=== PATIENT | female | born 1990 | race Two or more races ===

== ENCOUNTER 2019-06-05 08:31 | Observation (INO) | payer OTHER ==
[~2019-06-05] VITALS: Ht 162.6 cm; Wt 91.2 kg
[2019-06-05] MEDS ORDERED: FAMOTIDINE 20 MG/2 ML IV ONE (09:00)
[2019-06-05] MEDS ORDERED: ONDANSETRON 2MG/ML, 2ML IVPush ONE (09:00)
[2019-06-05] MEDS ORDERED: MAALOX/HYOSCYAMINE/LIDOCAINE 45 ML BTL PO ONE (09:00)
[2019-06-05] MEDS ORDERED: SODIUM CHLORIDE FLUSH 10ML SYR IVF ONE (09:00)
[2019-06-05 09:14] LABS: MEAN CORPUSCULAR HEMOGLOBIN 29.5 pg (27.0-34.8); MEAN CORPUSCULAR HGB CONC 33.4 g/dL (32.4-35.8); MEAN CORPUSCULAR VOLUME 88.4 fL (80-100); MEAN PLATELET VOLUME 7.8 fL (7.4-10.4); PLATELET COUNT 237 x10^3/uL (130-400); RED CELL DISTRIBUTION WIDTH 12.9 % (9.6-15.2)
[2019-06-05 09:22] LABS: ALANINE AMINOTRANSFERASE 39 U/L (12-78); ALBUMIN 3.7 g/dL (3.4-5.0); ANION GAP 7 mmol/L (5-15); CALCIUM 8.5 mg/dL (8.5-10.1); CHLORIDE 105 mmol/L (98-107)
[2019-06-05] MEDS ORDERED: FAMOTIDINE 20 MG TABLET ONE (09:22)
[2019-06-05] MEDS ORDERED: ONDANSETRON ODT 4 MG ONE (09:23)
[2019-06-05] MEDS ORDERED: MAALOX/HYOSCYAMINE/LIDOCAINE 45 ML BTL ONE (09:23)
[2019-06-05 09:27] LABS: ALKALINE PHOSPHATASE 61 U/L (45-117); BASOPHILS # (AUTO) 0.01 x10^3/uL (0-0.1); BASOPHILS % (AUTO) 0 % (0-1); BILIRUBIN,TOTAL 1.1 mg/dL (0.2-1.0); EOSINOPHILS # (AUTO) 0.05 x10^3/uL (0-0.4); EOSINOPHILS % (AUTO) 0 % (1-7); LYMPHOCYTES # (AUTO) 1.17 x10^3/uL (1-3.4); LYMPHOCYTES % (AUTO) 5 % (22-44); MD SCAN; MONOCYTES % (AUTO) 1 % (2-9); NEUTROPHILS # (AUTO) 20.33 x10^3/uL (1.8-6.8); NEUTROPHILS % (AUTO) 93 % (42-75); TOTAL PROTEIN 7.5 g/dL (6.4-8.2)
--- NOTE | 2019-06-05 09:27 | NUR ---
PATIENT IN BED. FRIEND BEDSIDE. MEDICATION GIVEN.
[2019-06-05] MEDS ORDERED: ONDANSETRON ODT 4 MG PO ONE (09:30)
[2019-06-05] MEDS ORDERED: FAMOTIDINE 20 MG TABLET PO ONE (09:30)
[2019-06-05 09:31] LABS: MICROSCOPIC AUTO
[2019-06-05 09:32] LABS: CULTURE INDICATED? YES
[2019-06-05] MEDS ORDERED: OMNIPAQUE 350 MG/ML, 100ML BOTTLE ONE (09:53)
--- NOTE | 2019-06-05 10:03 | NUR ---
PATIENT RETURNED FROM CT. REPORTS MINIMAL IMPORVMENT ON PAIN FROM MEDICATIONS GIVEN.
[2019-06-05] MEDS ORDERED: KETOROLAC 30 MG/1 ML IV PRN (12:00)
[2019-06-05] MEDS ORDERED: ONDANSETRON 2MG/ML, 2ML IVPush PRN (12:00)
[2019-06-05] MEDS ORDERED: ENOXAPARIN 40 MG/0.4 ML SQ SCH (12:00)
[2019-06-05 12:16] VITALS: BP 111/70
[2019-06-05 12:40] VITALS: BP 111/70
[2019-06-05] MEDS: SODIUM CHLORIDE 0.9% 1,000 ML IV SCH ×2 (13:42→22:23)
[2019-06-05] MEDS: CEFTRIAXONE PMX 1GM/50ML 50 ML IV SCH (13:43)
[2019-06-05] MEDS: ENOXAPARIN 40 MG/0.4 ML SQ SCH (14:21)
[2019-06-05 17:20] LABS: HCG UR SG > 1.045 (1.003-1.030)
[2019-06-05 19:46] VITALS: BP 111/63
[2019-06-05] MEDS: ACETAMINOPHEN 325 MG TABLET PO PRN (22:25)
[2019-06-06 01:34] VITALS: BP 122/74
[2019-06-06 05:28] LABS: BASOPHILS # (AUTO) 0.03 x10^3/uL (0-0.1); BASOPHILS % (AUTO) 0 % (0-1); EOSINOPHILS % (AUTO) 2 % (1-7); LYMPHOCYTES # (AUTO) 1.87 x10^3/uL (1-3.4); LYMPHOCYTES % (AUTO) 20 % (22-44); MD NO; MEAN CORPUSCULAR HEMOGLOBIN 30.1 pg (27.0-34.8); MEAN CORPUSCULAR HGB CONC 33.6 g/dL (32.4-35.8); MEAN CORPUSCULAR VOLUME 89.7 fL (80-100); MEAN PLATELET VOLUME 7.7 fL (7.4-10.4); MONOCYTES # (AUTO) 0.41 x10^3/uL (0.2-0.8); MONOCYTES % (AUTO) 5 % (2-9); NEUTROPHILS # (AUTO) 6.65 x10^3/uL (1.8-6.8); NEUTROPHILS % (AUTO) 73 % (42-75); PLATELET COUNT 196 x10^3/uL (130-400); RED BLOOD COUNT 4.41 x10^6/uL (3.82-5.3)
[2019-06-06 05:36] LABS: ANION GAP 6 mmol/L (5-15); CALCIUM 7.6 mg/dL (8.5-10.1); CHLORIDE 108 mmol/L (98-107)
[2019-06-06 05:40] LABS: ALANINE AMINOTRANSFERASE 40 U/L (12-78); ALKALINE PHOSPHATASE 55 U/L (45-117); BILIRUBIN,TOTAL 1.1 mg/dL (0.2-1.0); CREATININE 0.81 mg/dL (0.55-1.02); TOTAL PROTEIN 6.5 g/dL (6.4-8.2)
[2019-06-06] MEDS: PANTOPROZOLE 40MG TABLET PO SCH (05:49)
[2019-06-06] MEDS: SODIUM CHLORIDE 0.9% 1,000 ML IV SCH ×2 (05:49→14:58)
[2019-06-06 08:15] VITALS: BP 113/74
[2019-06-06] MEDS: ACETAMINOPHEN 325 MG TABLET PO PRN ×2 (08:42→22:38)
[2019-06-06] MEDS: CEFTRIAXONE PMX 1GM/50ML 50 ML IV SCH (12:08)
[2019-06-06 12:47] VITALS: BP 132/78
[2019-06-06] MEDS: ENOXAPARIN 40 MG/0.4 ML SQ SCH (14:57)
[2019-06-06 19:05] VITALS: BP 131/81
[2019-06-07] MEDS: SODIUM CHLORIDE 0.9% 1,000 ML IV SCH ×2 (00:04→08:11)
[2019-06-07 02:40] VITALS: BP 138/78
[2019-06-07 07:39] VITALS: BP 135/85
[2019-06-07] MEDS: PANTOPROZOLE 40MG TABLET PO SCH (10:10)
[2019-06-07] MEDS: CEFTRIAXONE PMX 1GM/50ML 50 ML IV SCH (11:03)
[2019-06-07] MEDS ORDERED: CEFD300C37 PO (11:14)
[2019-06-07 12:40] VITALS: BP 112/78
== END 2019-06-07 13:10 | disposition home or self-care (01) ==
LOC: ED 10:01 → INTOOBSV 11:08 → EDIP 11:08 → 3N 11:52 → DCLOUNGE 06-07 13:02
PROVIDERS: ADMIT Internal Medicine; ATTEND Internal Medicine
DX: R10.84 Generalized abdominal pain (principal); D72.829 Elevated white blood cell count, unspecified; E66.9 Obesity, unspecified; J45.909 Unspecified asthma, uncomplicated; F12.90 Cannabis use, unspecified, uncomplicated; R11.2 Nausea with vomiting, unspecified
CPT/HCPCS: 36415; 74018; 74177; 80053; 81001; 81025; 83690; 83735; 84100; 84145; 84443; 84703; 85025; 87086; 96361; 96365; 96366; 96372; 99284; G0378; J0696; J1650; J7030; Q0162; Q9967